=== PATIENT | female | born 1970 | race Caucasian/White ===

== ENCOUNTER 2020-07-03 12:47 | Outpatient (CLI) | payer OTHER, SELFPAY ==
--- NOTE | 2020-07-03 13:03 | MM_ITS ---
WS: [id number] BILATERAL DIGITAL SCREENING MAMMOGRAPHY WITH CAD CLINICAL INFORMATION: SCREENING HISTORY: Screening mammogram. No current complaints. COMPARISON: TECHNIQUE: Bilateral CC and MLO views. FINDINGS: The breasts are composed of heterogeneous fibroglandular density tissue, which can limit the detectio n of small underlying mass lesions. No suspicious mass, asymmetry, calcifications, or architectural d istortion. No evidence of malignancy. Lucent centered calcification right breast. MM/[place] [id number] IMPRESSION: BI-RADS: 2-Benign FOLLOW UP: 1 Year Follow-up Recommend return to annual screening mammography.
== END 2020-07-03 12:48 | disposition home or self-care (01) ==
LOC: RADSHAW 12:52
PROVIDERS: Family Provider Internal Medicine; PCP Internal Medicine; Visit Provider Internal Medicine
DX: Z12.31 Encounter for screening mammogram for malignant neoplasm of breast (principal)
CPT/HCPCS: 77067

== ENCOUNTER 2020-11-26 14:08 | Emergency (ER) | payer OTHER, SELFPAY ==
[2020-11-26 14:26] VITALS: BP 134/79; PULSE 83; RESP 21; TEMP 36.7; O2SAT 97; BMI 33.6
--- NOTE | 2020-11-26 14:31 | CTR_ITS ---
PROCEDURE INFORMATION: Exam: CT Chest Without Contrast; Diagnostic Exam date and time: 11/26/2020 2:39 PM Age: 49 years old Clinical indication: Injury or trauma; Other: Kicked by cow; Upper; Blunt trauma (contusions or hematomas); Prior surgery; Surgery date: 6+ months; Surgery type: C-sect; Patient HX: Kicked by a cow R flank/r lower rib area; Additional info: Kicked by steer on right side low rib pain TECHNIQUE: Imaging protocol: Diagnostic computed tomography of the chest without contrast. Radiation optimization: All CT scans at this facility use at least one of these dose optimization techniques: automated exposure control; mA and/or kV adjustment per patient size (includes targeted exams where dose is matched to clinical indication); or iterative reconstruction. COMPARISON: No relevant prior studies available. RADIATION DOSE METRICS: Total DLP (mGy-cm): 1566.05 FINDINGS: Lungs: Unremarkable. No consolidation. No masses. Pleural spaces: Unremarkable. No pneumothorax. No pleural effusion. Heart: No cardiomegaly. No pericardial effusion. Aorta: No aortic aneurysm. Lymph nodes: No significant adenopathy. Bones/joints: Nondisplaced fracture of the right lateral 9th rib. Ossification arising from the left anterior 4th rib, consistent with benign osteochondroma or old fracture. Soft tissues: No hematoma. IMPRESSION: Right 9th rib fracture. PROCEDURE INFORMATION: Exam: CT Abdomen And Pelvis Without Contrast Exam date and time: 11/26/2020 2:39 PM Age: 49 years old Clinical indication: Injury or trauma; Other: Kicked by cow; Upper; Blunt trauma (contusions or hematomas); Prior surgery; Surgery date: 6+ months; Surgery type: C-sect; Patient HX: Kicked by a cow R flank/r lower rib area; Additional info: Kicked by steer on right side low rib pain TECHNIQUE: Imaging protocol: Computed tomography of the abdomen and pelvis without contrast. Radiation optimization: All CT scans at this facility use at least one of these dose optimization techniques: automated exposure control; mA and/or kV adjustment per patient size (includes targeted exams where dose is matched to clinical indication); or iterative reconstruction. COMPARISON: No relevant prior studies available. RADIATION DOSE METRICS: Total DLP (mGy-cm): 1566.05 FINDINGS: Liver: No mass. Gallbladder and bile ducts: Partially contracted, cholelithiasis. No ductal dilation. Pancreas: Normal. No ductal dilation. Spleen: Normal. No splenomegaly. Adrenal glands: Normal. No mass. Kidneys and ureters: Very small left renal calculus, no hydronephrosis of either kidney. Stomach and bowel: No acute findings. No obstruction. No mucosal thickening. Appendix: No evidence of appendicitis. Intraperitoneal space: Unremarkable. No free air. No significant fluid collection. Vasculature: No abdominal aortic aneurysm. Lymph nodes: No significant adenopathy. Urinary bladder: Unremarkable as visualized. Reproductive: Unremarkable as visualized. Bones/joints: No acute findings. Soft tissues: No hematoma. CT/CT chest abd pel wo con IMPRESSION: No acute findings. Radiation Dose CTDIVOL = (mGy): DLP = 1566.05~1566.05 (mGy-cm)
[2020-11-26 14:32] VITALS: O2SAT 96
--- NOTE | 2020-11-26 14:32 | ED_ITS ---
HPI - Trauma General: Chief Complaint: Trauma Stated Complaint: kicked in ribs by steer Time Seen by Provider: 11/26/20 14:27 History of Present Illness: HPI narrative: Patient is a 49-year-old female who comes to the ER 2 hours after she was kicked by a steer on her right side. She complains of pain with deep breathing. She says she waited 2 hours and it c ontinued to hurt so she came to the ER for evaluation. Satting 97% on room air. She says she has pain with movement and deep breathing but other than that she feels fine. She says she fell down when the steer kicked her but she does not complain of any other injuries. MD complaint: injury and pain Onset (ago): hour(s) (2) Loss of Consciousness: no Associated symptoms: Denies abdominal pain, back pain, chest pain, confusion, dizziness or headache(s) Review of Systems General: Reports: 10 or more systems reviewed and unremarkable except in HPI and below Const: Denies: fatigue Eyes: Denies: change in vision, blurry vision or eye redness ENMT: Denies: throat pain, swelling of lips/tongue, ear or mastoid pain or nasal congestion Card: Denies: chest pain, palpitations, irregular heart rhythm, edema, dyspnea on exertion or orthopnea Resp: Denies: dyspnea, productive cough or non-productive cough GI: Denies: abdominal pain, diarrhea or GI cramping : Denies: flank pain, difficulty voiding, urinary frequency or urinary urgency Musc: Reports: other (right chest and abdomen pain); Denies: neck pain, back pain, extremity pain, joint pain, joint redness, limited range of motion or muscle weakness Skin/Breast: Denies: rash, pruritus, erythema, skin pain or skin tenderness Neuro: Denies: headache(s), numbness in extremities, weakness in extremities, sensory changes, difficulty walking, dizziness, confusion or Slurred speech present Psych: Denies: anxiety or depression Endo: Denies: polyuria All/Imm: Denies: urticaria, throat swelling or tongue swelling Physical Exam Const: COMMON NORMALS: no acute distress, average body habitus, patient oriented x3, no limitations, healthy appearing, alert and well nourished GENERAL APPEARANCE: cooperative, comfortable, well kempt and well developed ORIENTATION/CONSCIOUSNESS: Yes awake, Yes oriented to person, Yes oriented to place and Yes oriented to time HENMT: COMMON NORMALS: normocephalic, external ears normal and Normal external nose present HEAD & SCALP: normal to inspection and normocephalic NOSE: Normal external nose present EXTERNAL EAR: Yes external ears normal MOUTH: Normal oral and palatal mucosa present THROAT: posterior oropharynx normal Eye: COMMON NORMALS: Equal, round and reactive pupils present and EOMs intact bilaterally GENERAL EYE: appearance normal, both eyes and all related structures PUPIL: Yes Equal, round and reactive pupils present Neck/C-Spine: COMMON NORMALS: full ROM, no lymphadenopathy, no meningeal signs and no JVD GENERAL: Yes normal visual inspection Lymph: LYMPHATIC: no lymphadenopathy noted Chest: COMMONS NORMALS: normal inspection of the chest and normal palpation of entire chest wall Resp: COMMON NORMALS: normal respiratory effort, No retractions, No use of accessory muscles, clear to auscultation bilaterally and percussion normal EF FORT & INSPECTION: Yes able to speak in complete sentences AUSCULTATION: clear to auscultation bilaterally PERCUSSION: percussion normal Cardio: COMMON NORMALS: no JVD, regular rate, regular rhythm, S1 normal heart sound present, S2 normal heart sound present and Peripheral pulses 2+ throughout RATE: regular rate RHYTHM: regular rhythm HEART SOUNDS: S1 normal heart sound present and S2 normal heart sound present PERIPHERAL PULSES: Peripheral pulses 2+ throughout GI: COMMON NORMALS: Normal to inspection, nondistended, normoactive bowel sounds present, Soft to palpation, non-tender and no masses INSPECTION: Yes normal to inspection PALPATION: Yes Soft to palpation : COMMON NORMALS: Yes no CVA tenderness BLADDER/KIDNEY EXAM: Yes no CVA tenderness Back/Pelvis: COMMON NORMALS: no CVA tenderness, thoracic and lumbar spine normal to inspection, no thoracic nor lumbar tenderness and thoraco-lumbar ROM normal Extremity: COMMON NORMALS: normal to inspection, full ROM, capillary refill normal, no joint enlargement and no pedal edema GENERAL: Yes normal exam except as noted Neuro: COMMON NORMALS: patient oriented x3, CN's II-XII intact bilaterally, moves all extremities, no focal motor deficits, no sensory deficits noted and gait normal SENSORIUM/ORIENTATION: Yes alert, Yes oriented to person, Yes oriented to place and Yes oriented to time MENINGEAL SIGNS: Yes no meningeal signs Psych: COMMON NORMALS: mental status grossly normal, Normal thought process present, cooperative, normal affect and speech normal APPEARANCE: Yes well kempt ATTITUDE: Yes calm SPEECH: Yes normal speech THOUGHT PROCESS: Normal thought process present Skin: COMMON NORMALS: no rashes or lesions noted NARRATIVE SKIN EXAM: The patient has a contusion in the shape of a close to the right lateral lower chest wall including the lower ribs and upper abdomen. SKIN IMAGES (FEMALE): 1. contusion. slight erythema in shape of hoof. GENERAL SKIN EXAM: no rashes or lesions noted Course Vital Signs: Vital signs: Vital Signs Temperature 98.1 F 11/26/20 14:26 Pulse Rate 83 11/26/20 14:26 Respiratory Rate 21 H 11/26/20 14:26 Blood Pressure 134/79 11/26/20 14:26 Pulse Oximetry 96 11/26/20 14:32 MDM - Trauma MDM Narrative: Medical decision making narrative: The patient came in after being kicked by a steer in the right side. She has a fractured right ninth rib. No other significant injuries. We will send her home with hydrocodone for her pain which she will use to help sleep at night. Also her left fourth rib has an osteochondroma which is an incidental finding. I discussed this with her is likely a benign tumor oral or old healed fracture there however recommended she follow-up with her primary care physician in a week to discuss further. ER with worsening symptoms at any time Discharge Plan Discharge Patient Disposition: Home Clinical Impression: Fracture of rib, Osteochondroma Condition: Stable Prescriptions: New hydrocodone-acetaminophen 5-325 mg tablet 1 tab PO Q6H PRN (Reason: pain) Qty: 12 RF: 0 No Action No Known Home Medications RF: 0 Discharge Orders: Discharge ED (Routine); Ordered 11/26/20 Ordered By: Braxton Heath Referrals: Roddy Bowers DO [Primary Care Provider] - Discharge Diet: Advance as tolerated Discharge Activity: Resume usual activity Patient Instructions: Rib Fracture (ED), Opioid Safety Activity Restrictions/Additional Instructions: You have broken your ninth rib on the right side. This will continue to give you pain for weeks. I am prescribing you hydrocodone. Please try taking half a pill for pain at night to help you sleep. If it does not help you may increase it to a full pill. Follow-up with your primary care physician in a week or so to monitor improvement of your symptoms and avoid further trauma to the area. Return to the ER with worsening symptoms at any time. Also noted coming from your left fourth rib you have a bone growth which is likely an osteochondroma. Also please discuss this with your primary care physician at the visit as well. Coding Level of Care Code ED Pattern Room Attendant for Clarisa Fwd Exam Comprehensive
[2020-11-26 16:20] VITALS: BP 121/76; PULSE 77; RESP 19; O2SAT 98
== END 2020-11-26 16:21 | disposition home or self-care (01) ==
PROVIDERS: Emergency Provider Family Medicine; PCP Internal Medicine
DX: S22.31XA Fracture of one rib, right side, initial encounter for closed fracture (principal); W55.22XA Struck by cow, initial encounter; D16.9 Benign neoplasm of bone and articular cartilage, unspecified
CPT/HCPCS: 71250; 74176; 99283

== ENCOUNTER 2021-01-29 20:20 | Emergency (ER) | payer OTHER, SELFPAY ==
[2021-01-29 20:26] VITALS: BP 147/79; PULSE 74; RESP 16; TEMP 36.7; O2SAT 98; BMI 32.5
--- NOTE | 2021-01-29 20:27 | ECG_ITS ---
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 Measurements Intervals [place] Rate: 70 P: 59 WA: 162 QRS: 39 QRSD: 73 T: 42 QT: 366 QTc: 397 Interpretive Statements SINUS RHYTHM No previous ECG available for comparison Electronically Signed On 02-01-2021 7:46:18 CDT by Chelsy Plasencia M.D. [id number]
== END 2021-01-29 23:50 ==
DX: Z53.21 Procedure and treatment not carried out due to patient leaving prior to being seen by health care provider (principal)
CPT/HCPCS: 93005

== ENCOUNTER 2021-01-30 09:08 | Emergency (ER) | payer OTHER, SELFPAY ==
[2021-01-30] VITALS (10 sets, daily range): BP systolic 103–143; BP diastolic 60–90; PULSE 64–76; RESP 15–26; TEMP 36.8; O2SAT 96–99; BMI 32.5
--- NOTE | 2021-01-30 09:22 | XRR_ITS ---
PROCEDURE INFORMATION: Exam: XR Chest Exam date and time: 01/30/2021 9:22 AM Age: 50 years old Clinical indication: Pain; Angina pectoris and other: Tightness; Additional info: Cp/heaviness x 2 days with nausea TECHNIQUE: Imaging protocol: XR of the chest. Views: 1 view. COMPARISON: CT chest abd pel wo con 11/26/2020 2:41 PM FINDINGS: Lungs: There is mild subsegmental atelectasis along the right hemidiaphragm. Otherwise the lungs are clear. Pleural spaces: Unremarkable. No pleural effusion. No pneumothorax. Heart/Mediastinum: Unremarkable. No cardiomegaly. Bones/joints: There is bony hypertrophy of the distal end of the left 4th rib which may be from old fracture or osteo chondroma. This has been seen on previous CT scan. No acute bony abnormalities are seen. XR/XR chest 1V portable [id number] IMPRESSION: Mild subsegmental atelectasis in the right lung base. No other acute abnormality.
--- NOTE | 2021-01-30 09:22 | ECG_ITS ---
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 Measurements Intervals [place] Rate: 71 P: 9 VT: 174 QRS: 21 QRSD: 70 T: 18 QT: 374 QTc: 407 Interpretive Statements SINUS RHYTHM LOW QRS VOLTAGE IN PRECORDIAL LEADS [QRS DEFLECTION < 1.0 mV IN CHEST LEADS] No previous ECG available for comparison Electronically Signed On 02-01-2021 10:04:27 CDT by Chelsy Plasencia M.D. [id number]
[2021-01-30 09:57] LABS: Basophils # 0.1 10^3/uL (0.0-0.1); Basophils % 0.6 %; Eosinophils # 0.2 10^3/uL (0.0-0.8); Hematocrit 36.3 % (37.0-47.0); Hemoglobin 11.8 g/dL (11.5-15.3); Lymphocytes # 1.4 10^3/uL (0.8-4.8); Lymphocytes % 17.9 %; Mean Corpuscular HGB Conc 32.5 g/dL (30.0-36.0); Mean Corpuscular Hemoglobin 28.4 pg (28.0-34.0); Mean Corpuscular Volume 87.3 fL (81-99); Mean Platelet Volume 11.3 fL (7.4-10.4); Monocytes # 0.7 10^3/uL (0.2-0.9); Monocytes % 9.1 %; Neutrophils # 5.45 10^3/uL (1.8-7.7); Neutrophils % 69.1 %; Nucleated Red Blood Cells % 0 %; Platelet Count 248 10^3/cmm (130-400); Red Blood Count 4.16 10^6/uL (4.1-5.3); Red Cell Distribution Width 14.2 % (12.1-15.1); White Blood Count 7.9 10^3/uL (4.0-10.0)
--- NOTE | 2021-01-30 10:18 | W.ED.CHESTPA ---
HPI - Chest Pain General: Chief Complaint: Chest Pain Stated Complaint: chest heavy, fatique Time Seen by Provider: 01/30/21 09:34 History of Present Illness: HPI narrative: 50-year-old female presents emergency room with complaint of chest pressure and discomfort she has had it since yesterday. No radiation of discomfort. She was seen by her primary care doctor today and directed here. She was here last night had an initial EKG and then a left without being seen because of the perceived wait time. She has no shortness of breath or diaphoresis she is not had previous episodes prior to this. MD complaint: chest pain Onset (ago): hour(s) Timing of current episode: episodic and now resolved Prior episodes: No Onset: during rest Pain location: left chest Pain radiation: none Severity: mild Quality: tightness and heaviness Relieving factors: nothing Exacerbating factors: nothing Associated symptoms: Deny abdominal pain, diaphoresis, dyspnea, fever(s), leg edema, nausea, palpitations, sense of impending doom, syncope or vomiting Treatment prior to arrival: none Review of Systems Const: Denies: fever(s) or diaphoresis ENMT: Denies: throat pain, ear or mastoid pain, nasal discharge or nasal congestion Card: Denies: palpitations or syncope Resp: Denies: dyspnea GI: Denies: abdominal pain, nausea or vomiting : Denies: flank pain, difficulty voiding, dysuria, urinary frequency or urinary urgency Skin/Breast: Denies: rash or pruritus [facility] Female Reproductive History: Date of last menstrual period: 01/02/21 Physical Exam Const: COMMON NORMALS: no acute distress GENERAL APPEARANCE: cooperative and comfortable ORIENTATION/CONSCIOUSNESS: Yes awake, Yes oriented to person, Yes oriented to place and Yes oriented to time HENMT: COMMON NORMALS: normocephalic, atraumatic and hearing grossly normal bilaterally HEAD & SCALP: normocephalic and atraumatic Neck/C-Spine: COMMON NORMALS: no JVD Resp: COMMON NORMALS: normal respiratory effort, No retractions, No use of accessory muscles and clear to auscultation bilaterally AUSCULTATION: clear to auscultation bilaterally Cardio: COMMON NORMALS: no JVD, regular rate, regular rhythm and No murmurs present (Cardio) RATE: regular rate RHYTHM: regular rhythm GI: COMMON NORMALS: Soft to palpation and No hepatosplenomegaly present AUSCULTATION: Yes normoactive bowel sounds PALPATION: Yes Soft to palpation, No Tenderness to palpation present (GI), No Guarding due to palpation present (GI) and Yes No hepatosplenomegaly present Extremity: COMMON NORMALS: normal to inspection, capillary refill normal, no clubbing, cyanosis or edema, no calf tenderness and no pedal edema Neuro: SENSORIUM/ORIENTATION: Yes oriented to person, Yes oriented to place and Yes oriented to time Skin: COMMON NORMALS: no rashes or lesions noted GENERAL SKIN EXAM: no rashes or lesions noted Course Vital Signs: Vital signs: Vital Signs Temperature 98.2 F 01/30/21 09:37 Pulse Rate 68 01/30/21 13:40 Respiratory Rate 22 H 01/30/21 13:40 Blood Pressure 125/90 01/30/21 13:40 Pulse Oximetry 99 01/30/21 13:40 MDM - Chest Pain MDM Narrative: Medical decision making narrative: EKGs and laboratories reviewed. Patient not having any further symptoms. We will discharge her home started on pantoprazole 81 mg aspirin daily and schedule for this Lexiscan sestamibi stress test. Return if has further problems. Lab Data: Labs: Lab Results 01/30/21 01/30/21 01/30/21 Range/Units 09:48 09:48 09:48 WBC 7.9 (4.0-10.0) 10^3/ uL RBC 4.16 (4.1-5.3) 10^6/u L Hgb 11.8 (11.5-15.3) g/dL Hct 36.3 L (37.0-47.0) % MCV 87.3 (81-99) fL MCH 28.4 (28.0-34.0) pg MCHC 32.5 (30.0-36.0) g/dL RDW 14.2 (12.1-15.1) % Plt Count 248 (130-400) 10^3/c mm MPV 11.3 H (7.4-10.4) fL Neut % (Auto) 69.1 % Lymph % (Auto) 17.9 % [place] % (Auto) 9.1 % Eos % (Auto) 3.0 % Baso % (Auto) 0.6 % Neut # (Auto) 5.45 (1.8-7.7) 10^3/u L Lymph # (Auto) 1.4 (0.8-4.8) 10^3/u L [place] # (Auto) 0.7 (0.2-0.9) 10^3/u L Eos # (Auto) 0.2 (0.0-0.8) 10^3/u L Baso # (Auto) 0.1 (0.0-0.1) 10^3/u L Nucleated RBC % (a uto) 0 % Nucleated RBCs # 0.0 /100WBC Sodium 136 (136-145) mmol/L Potassium 4.3 (3.5-5.1) mmol/L Chloride 101 (98-107) mmol/L Carbon Dioxide 22 (22-29) mmol/L Anion Gap 17.3 (5-19) BUN 10 (6-20) mg/dL Creatinine 0.6 (0.5-0.9) mg/dL GFR Calculation 105.4 (90-130) mL/min Glucose 89 (65-115) mg/dL Calculated Osmolal ity 281 L (285-295) mOsm/k g Calcium 8.1 L (8.5-10.5) mg/dL Total Bilirubin 0.4 (0.15-1.2) mg/dL AST 19 (0-32) U/L ALT 18 (0-33) U/L Alkaline Phosphata se 80 (35-105) IU/L Troponin T Gen 5 n g/L Cancelled Troponin T Baselin e (0-10) ng/L Troponin T 120 Min [place] (0-10) ng/L Delta Troponin T (0-10) ABS# Total Protein 7.1 (6.6-8.7) g/dL Albumin 4.0 (3.5-5.2) g/dL Globulin 3.1 (1.3-4.6) g/dL 01/30/21 01/30/21 Range/Units 09:48 12:10 WBC (4.0-10.0) 10^3/ uL RBC (4.1-5.3) 10^6/u L Hgb (11.5-15.3) g/dL Hct (37.0-47.0) % MCV (81-99) fL MCH (28.0-34.0) pg MCHC (30.0-36.0) g/dL RDW (12.1-15.1) % Plt Count (130-400) 10^3/c mm MPV (7.4-10.4) fL Neut % (Auto) % Lymph % (Auto) % [place] % (Auto) % Eos % (Auto) % Baso % (Auto) % Neut # (Auto) (1.8-7.7) 10^3/u L Lymph # (Auto) (0.8-4.8) 10^3/u L [place] # (Auto) (0.2-0.9) 10^3/u L Eos # (Auto) (0.0-0.8) 10^3/u L Baso # (Auto) (0.0-0.1) 10^3/u L Nucleated RBC % (a uto) % Nucleated RBCs # /100WBC Sodium (136-145) mmol/L Potassium (3.5-5.1) mmol/L Chloride (98-107) mmol/L Carbon Dioxide (22-29) mmol/L Anion Gap (5-19) BUN (6-20) mg/dL Creatinine (0.5-0.9) mg/dL GFR Calculation (90-130) mL/min Glucose (65-115) mg/dL Calculated Osmolal ity (285-295) mOsm/k g Calcium (8.5-10.5) mg/dL Total Bilirubin (0.15-1.2) mg/dL AST (0-32) U/L ALT (0-33) U/L Alkaline Phosphata se (35-105) IU/L Troponin T Gen 5 n g/L Troponin T Baselin e 6 (0-10) ng/L Troponin T 120 Min [place] 6.00 (0-10) ng/L Delta Troponin T 0 (0-10) ABS# Total Protein (6.6-8.7) g/dL Albumin (3.5-5.2) g/dL Globulin (1.3-4.6) g/dL Discharge Plan Discharge Patient Disposition: Home Clinical Impression: Atypical chest pain Condition: Stable Prescriptions: New aspirin 81 mg tablet,delayed release (DR/EC) 81 mg PO DAILY Qty: 30 RF: 0 pantoprazole 40 mg tablet,delayed release (DR/EC) 40 mg PO DAILY 56 Days RF: 0 No Action hydrocodone-acetaminophen 5-325 mg tablet 1 tab PO Q6H PRN (Reason: pain) Qty: 12 RF: 0 ibuprofen 200 mg Tablet 400 mg PO PRN RF: 0 Discharge Orders: Discharge ED (Routine); Ordered 01/30/21 Ordered By: Dany Quigley Referrals: Roddy Bowers DO [Primary Care Provider] - Discharge Activity: Resume usual activity Patient Instructions: Opioid Safety Activity Restrictions/Additional Instructions: Case management will call to make arrangements for a Lexiscan sestamibi stress test Coding Level of Care Code ED [employer]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
[2021-01-30 10:30] LABS: Alanine Aminotransferase 18 U/L (0-33); Alkaline Phosphatase 80 IU/L (35-105); Blood Urea Nitrogen 10 mg/dL (6-20); Calcium 8.1 mg/dL (8.5-10.5); Carbon Dioxide 22 mmol/L (22-29); Chloride 101 mmol/L (98-107); Globulin 3.1 g/dL (1.3-4.6); Glomerular Filtration Rate 105.4 mL/min (90-130); Glucose 89 mg/dL (65-115); Osmolality Calculated 281 mOsm/kg (285-295); Sodium 136 mmol/L (136-145); Total Bilirubin 0.4 mg/dL (0.15-1.2); Total Protein 7.1 g/dL (6.6-8.7)
[2021-01-30 10:34] LABS: Anion Gap 17.3 (5-19); Aspartate Amino Transferase 19 U/L (0-32); Potassium 4.3 mmol/L (3.5-5.1)
--- NOTE | 2021-01-30 11:39 | ECG_ITS ---
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 Measurements Intervals [place] Rate: 67 P: 9 TN: 175 QRS: 20 QRSD: 84 T: 14 QT: 390 QTc: 413 Interpretive Statements SINUS RHYTHM Compared to ECG 01/30/2021 09:46:47 No significant changes Electronically Signed On 02-01-2021 7:44:08 CDT by Chelsy Plasencia M.D. [email or web address]/store/[id number]
[2021-01-30 12:04] LABS: Troponin(5th) Baseline 6 ng/L (0-10)
[2021-01-30 13:00] LABS: Troponin 5 2HR Delta 0 ABS# (0-10)
--- NOTE | 2021-02-08 15:10 | DCPLANNER ---
cafeteria manager had message that patient received the monoclonal antibody infusion. cafeteria manager called to check on patient after receiving the infusion. cafeteria manager called phone number [phone], unable to speak with patient at this time.
== END 2021-01-30 13:44 | disposition home or self-care (01) ==
PROVIDERS: Nurse Practitioner Family; Emergency Provider Family Medicine; PCP Internal Medicine
DX: R07.89 Other chest pain (principal); Z79.82 Long term (current) use of aspirin
CPT/HCPCS: 71045; 80053; 84484; 85025; 93005; 99283

== ENCOUNTER 2021-02-27 07:58 | Outpatient (CLI) | payer OTHER, SELFPAY ==
--- NOTE | 2021-02-27 | US_ITS ---
WS: [id number] RIGHT UPPER QUADRANT ULTRASOUND HISTORY: RUQ PAIN COMPARISON: None available. Liver: 15.6 cm in length. Top normal size liver. Mild coarse echotexture. The entire liver is not vis ualized. Gallbladder: Normally distended with cholelithiasis. No acute cholecystitis or wall thickening. CBD: 0.2 cm Pancreas: Normal size and echogenicity. Right kidney: 11.2 cm in length. Normal size and echogenicity. No hydronephrosis or mass. Aorta and IVC: Unremarkable abdominal aorta and IVC. No ascites. US/US abdomen limited [id number] IMPRESSION: 1. Cholelithiasis without acute cholecystitis. 2. Mild hepatic steatosis.
== END 2021-02-27 07:59 | disposition home or self-care (01) ==
LOC: RADOUTREAD 02-28 08:37
PROVIDERS: PCP Internal Medicine; Visit Provider Internal Medicine
DX: K80.20 Calculus of gallbladder without cholecystitis without obstruction (principal); K76.0 Fatty (change of) liver, not elsewhere classified; R10.11 Right upper quadrant pain

== ENCOUNTER 2021-03-28 09:46 | Outpatient (CLI) | payer OTHER, SELFPAY ==
--- NOTE | 2021-03-28 09:54 | NM_ITS ---
WS: [id number] NUCLEAR MEDICINE HIDA SCAN WITH GALLBLADDER EJECTION FRACTION HISTORY: GALLSTONES COMPARISON: Ultrasound 02/27/2021 TECHNIQUE: The patient was intravenously injected with 5.1 mCi of TC99m Mebrofenin. Immediate imaging over the right upper quadrant was followed by 5 minute image and additional images for a total of 60 minutes. Normal uptake of radiotracer throughout the liver. Activity identified in the gallbladder at 15 minutes and well distended by 60 minutes. Activity in the proximal small bowel was seen by 10 minutes. Good washout of the radiotracer from the liver by 60 minutes. The patient then drank 8 ounces of Ensure Plus. Ejection fraction at 60 minutes was 17%. Normal GB ej ection fraction is 35-75%. Post fatty meal symptoms: None. NM/NM hepatobiliary w phar* [id number] IMPRESSION: 1. Normal HIDA scan. 2. No cystic or common bile duct obstruction. 3. Abnormal gallbladder EF. Consider chronic cholecystitis.
== END 2021-03-28 09:47 | disposition home or self-care (01) ==
LOC: NM 09:49
PROVIDERS: PCP Internal Medicine; Visit Provider Internal Medicine
DX: K80.20 Calculus of gallbladder without cholecystitis without obstruction (principal)
CPT/HCPCS: 78227; A9537

== ENCOUNTER 2021-11-07 09:55 | Outpatient (CLI) | payer OTHER, SELFPAY ==
--- NOTE | 2021-11-07 10:11 | MM_ITS ---
WS: [id number] BILATERAL SCREENING DIGITAL BREAST TOMOSYNTHESIS MAMMOGRAM WITH CAD HISTORY: SCREENING COMPARISON: 07/03/2020 and 11/05/2018 Bilateral CC and MLO views with tomosynthesis and synthetic mammography submitted. Computer aided det ection analyzed. Breast composition: The breasts are heterogeneously dense, which may obscure small masses. No suspici ous masses, microcalcifications or architectural distortion. MM/[place] [id number] IMPRESSION: BI-RADS: 1-Negative FOLLOW UP: 1 Year Follow-up
== END 2021-11-07 09:56 | disposition home or self-care (01) ==
LOC: RAD 09:59
PROVIDERS: PCP Internal Medicine; Visit Provider Internal Medicine
DX: Z12.31 Encounter for screening mammogram for malignant neoplasm of breast (principal)
CPT/HCPCS: 77063; 77067

== ENCOUNTER 2022-05-29 10:42 | Outpatient (CLI) | payer OTHER, SELFPAY ==
--- NOTE | 2022-05-29 10:50 | MM_ITS ---
WS: [id number] DIAGNOSTIC RIGHT DIGITAL TOMOSYNTHESIS MAMMOGRAPHY WITH CAD. RIGHT breast ultrasound, limited HISTORY: BREAST LUMP R SIDE 8OCLOCK COMPARISON: 11/07/2021, 07/03/2020 and 11/05/2018 Technique: CC, MLO and ML views. Spot RIGHT CC. Breast composition: The breasts are heterogeneously dense, which may obscure small masses. There are 2 triangular markers along the anterior breast ranging from 6-8 o'clock. There is very dense fibrogl andular tissue within this region. No calcifications or distortion. No discrete well-circumscribed ma ss identified. RIGHT breast ultrasound, limited. Ultrasound is directed from 6-8 o'clock. There is dense fibroglandular tissue but no mass or shadowi ng identified. MM/[place] [id number] IMPRESSION: BI-RADS: 2-Benign FOLLOW UP: 1 Year Follow-up No imaging abnormality identified.
== END 2022-05-29 10:43 | disposition home or self-care (01) ==
LOC: RAD 10:43
PROVIDERS: PCP Internal Medicine; Visit Provider Internal Medicine
DX: N63.13 Unspecified lump in the right breast, lower outer quadrant (principal)
CPT/HCPCS: 76642; 77061; G0279

== ENCOUNTER 2022-12-25 09:55 | Outpatient (CLI) | payer OTHER, SELFPAY ==
--- NOTE | 2022-12-25 10:00 | MM_ITS ---
WS: [id number] SCREENING DIGITAL TOMOSYNTHESIS MAMMOGRAM WITH CAD HISTORY: SCREENING COMPARISON: 05/29/2022, 11/07/2021 and 07/03/2020 Bilateral CC and MLO with tomosynthesis views submitted. Synthetic mammography reviewed. Computer aid ed detection analyzed. Breast composition: The breasts are heterogeneously dense, which may obscure small masses. No suspici ous masses, microcalcifications or architectural distortion. MM/[place] [id number] IMPRESSION: BI-RADS: 1-Negative FOLLOW UP: 1 Year Follow-up
== END 2022-12-25 09:56 | disposition home or self-care (01) ==
PROVIDERS: PCP Internal Medicine; Visit Provider Internal Medicine
DX: Z12.31 Encounter for screening mammogram for malignant neoplasm of breast (principal)
CPT/HCPCS: 77063; 77067

== ENCOUNTER 2023-12-29 08:25 | Outpatient (CLI) | payer OTHER, MEDICAID, SELFPAY ==
--- NOTE | 2023-12-29 08:30 | MM_ITS ---
WS: [id number] BILATERAL 3D TOMOSYNTHESIS DIGITAL SCREENING MAMMOGRAPHY WITH CAD CLINICAL INFORMATION: SCREENING HISTORY: Screening mammogram. No current complaints. COMPARISON: 2022 TECHNIQUE: Bilateral CC and MLO views. FINDINGS: The breasts are composed of heterogeneous fibroglandular density tissue, which can limit the detectio n of small underlying mass lesions. Slightly irregular asymmetric density lower outer RIGHT breast be st seen on the MLO view. Recommend RIGHT breast diagnostic mammography and ultrasound. A few tiny incidental punctate calcifications. LEFT breast is unchanged. MM/[place] [id number] IMPRESSION: BI-RADS: 0-Incomplete: Need additional imaging evaluation FOLLOW UP: Need Additional Imaging Recommend RIGHT breast diagnostic mammography and ultrasound.
== END 2023-12-29 08:26 | disposition home or self-care (01) ==
LOC: RAD 08:25
PROVIDERS: PCP Internal Medicine; Visit Provider Internal Medicine
DX: Z12.31 Encounter for screening mammogram for malignant neoplasm of breast (principal)
CPT/HCPCS: 77063; 77067

== ENCOUNTER 2024-03-11 10:38 | Outpatient (CLI) | payer OTHER, MEDICAID, SELFPAY ==
--- NOTE | 2024-03-11 10:42 | MM_ITS ---
WS: [id number] RIGHT 3D TOMOSYNTHESIS DIGITAL MAMMOGRAPHY WITH CAD CLINICAL INFORMATION: INCONCLUSIVE MAMMO HISTORY: Additional views COMPARISON: 12/29/2023 TECHNIQUE: 3 views of the right breast were obtained. FINDINGS: The breasts are composed of heterogeneous fibroglandular density tissue, which can limit the detectio n of small underlying mass lesions. Previously described asymmetric density lower outer RIGHT breast compresses out today on the spot compression views. No other significant abnormalities. Recommend re turn to annual screening mammography. MM/MM diag RT tomosynthesis [id number] IMPRESSION: DENSITY: The breasts are heterogeneously dense, which may obscure small masses. BI-RADS: 2 - Benign FOLLOW UP: 1 Year Follow-up Recommend return to annual screening mammography.
== END 2024-03-11 10:39 | disposition home or self-care (01) ==
LOC: RAD 10:38
PROVIDERS: PCP Internal Medicine; Visit Provider Internal Medicine
DX: R92.2 Inconclusive mammogram (principal); R92.333 Mammographic heterogeneous density, bilateral breasts
CPT/HCPCS: 77061; G0279